=== PATIENT | female | born 1975 | race American Indian/Alaskan Native ===

== ENCOUNTER 2018-05-14 14:53 | Emergency (ER) | payer BC ==
--- NOTE | 2018-05-14 15:07 | Emergency Department Report ---
Chief Complaint: Chest Pain Stated Complaint: CHEST/LT ARM PAIN Time Seen by Provider: 05/14/18 15:09 - HPI History of Present Illness: RECENT GASTRITIS DX CO CHEST PAIN- HEAVY ANXIOUS CP WITH LA ALL OF THE SUDDEN DENIES SOB DENIES NAUSEA VAPES ETOH OCC DRUGS NONE PMH GASTRITIS DIVERTICULITIS OBESE PSH CSEC TUBAL LMP 04/07 PCP SABI MOTTA RX NONE MOM HTN DAD HTN MSE COMPLETED MSE screening note: Focused history and physical exam performed. Due to findings the following was ordered: ED Disposition for MSE Condition: Stable
--- NOTE | 2018-05-14 15:15 | Emergency Department Report ---
ED Chest Pain HPI - General Chief Complaint: Chest Pain Stated Complaint: CHEST/LT ARM PAIN Time Seen by Provider: 05/14/18 15:09 Source: patient, RN notes reviewed Mode of arrival: Ambulatory Limitations: No Limitations - History of Present Illness Initial Comments: This is a 42-year-old female who is not known to this provider previously. Her primary care provider is at [facility]. She reports a past medical history of gastritis and obesity. The patient presents to the emergency room with complaint of nontraumatic anterior chest pain, bilateral chest pain, posterior neck, trapezius pain, and left arm pain. The pain started at 1:00 PM. The pain is constant. The pain in the chest is reproducible, increases with palpation, decreases with rest, and it does not radiate to the back, arms or neck. The patient reports no DVT or pulmonary embolus risk factors. She reports feeling short of breath when her symptoms started, but she also reports feeling anxious, and this has since resolved. She is not short of breath currently. No recent aspirin use, or cocaine use. No oral contraceptive use. No family history of DVT, pulmonary embolus, coronary artery disease. MD Complaint: chest pain -: Gradual, hour(s) Onset: during exertion Pain Location: substernal, left chest, right chest Pain Radiation: none Severity: moderate Severity scale (0 -10): 7 Quality: aching Consistency: constant Improves With: rest Worsens With: palpation re: dyspnea (now resolved) Treatments Prior to Arrival: CPR - Related Data On Oral Contraceptives: No Previous Rx's Medication Instructions Recorded Last Taken Type Acetaminophen [Tylenol Arthritis] 650 mg PO Q6HR PRN #30 tablet.er 05/14/18 Unknown Rx Famotidine [Pepcid] 20 mg PO BID #30 tablet 05/14/18 Unknown Rx Allergies Allergy/AdvReac Type Severity Reaction Status Date / Time No Known Allergies Allergy Unverified 05/14/18 14:56 Heart Score - HEART Score History: Slightly suspicious EKG: Non-specific Age: < 45 Risk factors: 1-2 risk factors Troponin: < normal limit HEART Score: 2 - Critical Actions Critical Actions: 0-3 pts:0.9-1.7%risk of adverse cardiac event.Candidate for discharge ED Review of Systems ROS: Stated complaint: CHEST/LT ARM PAIN Other details as noted in HPI Constitutional: denies: fever Eyes: denies: vision change ENT: denies: epistaxis Respiratory: denies: cough Cardiovascular: chest pain Gastrointestinal: denies: abdominal pain, nausea, vomiting, hematemesis, melena, hematochezia Genitourinary: denies: dysuria Musculoskeletal: other Skin: denies: lesions Neurological: denies: weakness Psychiatric: anxiety ED Past Medical Hx - Past Medical History Previous Medical History?: Yes Additional medical history: Gastritis - Surgical History Past Surgical History?: No - Social History Smoking Status: Current Every Day Smoker Substance Use Type: None - Medications Home Medications: Home Medications Medication Instructions Recorded Confirmed Last Taken Type Acetaminophen [Tylenol Arthritis] 650 mg PO Q6HR PRN #30 tablet.er 05/14/18 Unknown Rx Famotidine [Pepcid] 20 mg PO BID #30 tablet 05/14/18 Unknown Rx ED Physical Exam - General Limitations: No Limitations General appearance: alert, in no apparent distress, obese - Head Head exam: Present: atraumatic, normocephalic - Eye Eye exam: Present: normal appearance, EOMI. Absent: nystagmus - ENT ENT exam: Present: normal exam, normal orophraynx, mucous membranes moist, normal external ear exam - Neck Neck exam: Present: normal inspection, full ROM. Absent: tenderness, meningismus - Respiratory Respiratory exam: Present: normal lung sounds bilaterally, chest wall tenderness, other (there is no breast tenderness. Chaperoned by nurse Ahmet Bo.). Absent: respiratory distress, wheezes, rales, rhonchi, stridor, accessory muscle use, decreased breath sounds, prolonged expiratory - Cardiovascular Cardiovascular Exam: Present: regular rate, normal rhythm. Absent: systolic murmur, diastolic murmur, rubs, gallop - GI/Abdominal GI/Abdominal exam: Present: soft. Absent: distended, tenderness, guarding, rebound, rigid, pulsatile mass - Extremities Exam Extremities exam: Present: normal inspection, full ROM, normal capillary refill, other (2+ pulses noted in the bilateral upper, lower extremities. Compartments soft. No long bony tenderness. The pelvis is stable.). Absent: pedal edema, joint swelling, calf tenderness - Back Exam Back exam: Present: normal inspection, full ROM. Absent: tenderness, CVA tenderness (R), paraspinal tenderness, vertebral tenderness - Neurological Exam Neurological exam: Present: alert, oriented X3, CN II-XII intact, normal gait, other (Extraocular movements intact. Tongue midline. No facial droop. Facial sensation intact to light touch in the V1, V2, V3 distribution bilaterally. 5 and 5 strength in 4 extremities.. Sensation is intact to light touch in 4 extremities.). Absent: motor sensory deficit - Psychiatric Psychiatric exam: Present: normal affect, normal mood - Skin Skin exam: Present: warm, dry, intact, normal color. Absent: rash ED Course Vital Signs 05/14/18 05/14/18 05/14/18 15:06 15:37 15:45 Temperature 99.5 F Pulse Rate 98 H 80 Respiratory 20 13 13 Rate Blood Pressure 157/80 130/67 O2 Sat by Pulse 98 Oximetry 05/14/18 05/14/18 05/14/18 16:01 16:15 16:30 Temperature Pulse Rate 78 74 76 Respiratory 13 19 14 Rate Blood Pressure 129/73 129/73 135/78 O2 Sat by Pulse Oximetry 05/14/18 05/14/18 05/14/18 16:53 17:00 17:15 Temperature Pulse Rate 82 81 87 Respiratory 18 18 15 Rate Blood Pressure 135/78 146/79 146/79 O2 Sat by Pulse Oximetry 05/14/18 05/14/18 05/14/18 17:47 17:55 18:01 Temperature Pulse Rate 92 H 68 Respiratory 20 13 Rate Blood Pressure 146/79 135/78 O2 Sat by Pulse 98 Oximetry 05/14/18 05/14/18 05/14/18 18:15 18:31 18:34 Temperature Pulse Rate 77 80 Respiratory 14 20 Rate Blood Pressure 146/79 146/79 O2 Sat by Pulse 98 Oximetry - Reevaluation(s) Reevaluation #1: 05/14/18 16:09 Differential diagnosis, including not limited to: GERD, gastritis, hiatal hernia, acute coronary syndrome, pneumonia, anxiety, pulmonary embolus Assessment and plan: 42-year-old female with reproducible chest wall pain, low risk by MAHSA score, low risk by heart score, low risk by well's criteria, no pulmonary embolus or DVT risk factors. Patient at low risk for major adverse c ardiac event. Given her obesity and tachycardia, we will send a d-dimer to risk stratify for pulmonary embolus. We will treat her chest wall pain with NSAIDs. Laboratory studies, chest x-ray pending at this time. Reevaluation #2: 05/14/18 18:10 Patient reassessed. Noted to be talking on a cellular phone multiple times. Patient with no acute distress. D-dimer negative. Troponin negative. X-ray of the chest negative. Repeat troponin is pending. Reevaluation #3: 05/14/18 18:53 The patient is reassessed multiple times and is in no acute distress. She is noted to be speaking on the cellular phone multiple times Objective testing appears to be unremarkable. Patient remains at low risk for major adverse cardiac event. She can follow up with outpatient primary care doctor for her nonspecifically elevated quantitative hCG, she was specifically informed about this, and she can follow up with an outpatient environmental management specialist for her chest discomfort. MAHSA score - Mahsa Score Age > 65: (0) No Aspirin use within the Past 7 Days: (0) No 3 or more CAD Risk Factors: (0) No 2 or more Angina events in past 24 hrs: (0) No Known CAD with more than 50% Stenosis: (0) No Elevated Cardiac Markers: (0) No ST Deviation Greater than 0.5mm: (0) No MAHSA Score: 0 ED Medical Decision Making - Lab Data Result diagrams: 05/14/18 15:28 05/14/18 15:28 Vital Signs 05/14/18 15:06 Temperature 99.5 F Pulse Rate 98 H Respiratory 20 Rate Blood Pressure 157/80 O2 Sat by Pulse 98 Oximetry - EKG Data -: EKG Interpreted by Me EKG shows normal: sinus rhythm Rate: tachycardia - EKG Data When compared to previous EKG there are: previous EKG unavailable 05/14/18 16:09 Sinus tachycardia, 102 bpm, normal axis, motion artifact, atrial enlargement, not consistent with ST elevation myocardial infarction. - Radiology Data Radiology results: pending, image reviewed interpreted by me: X-ray the chest is negative for acute disease. Critical care attestation.: If time is entered above; I have spent that time in minutes in the direct care of this critically ill patient, excluding procedure time. ED Disposition Clinical Impression: Chest wall pain, Elevated serum hCG Disposition: TO HOME OR SELFCARE Is pt being admited?: No Does the pt Need Aspirin: No Condition: Stable Instructions: Chest Pain (ED) Additional Instructions: Avoid consumption of Motrin, ibuprofen, Naprosyn, Aleve. Take the pain medication as needed/directed. Follow up with a environmental management specialist within the next 3- 5 days. Please note that laboratory studies demonstrated nonspecific minor elevation in blood test. Please follow up with a primary care doctor or [facility] physician within the next week to have this rechecked. Return to the emergency room right away with new pain, worsening pain, migration of pain, projectile vomiting, change in mental status, confusion, new, worsening or different symptoms. Prescriptions: Acetaminophen [Tylenol Arthritis] 650 mg PO Q6HR PRN #30 tablet.er PRN Reason: Pain Famotidine [Pepcid] 20 mg PO BID #30 tablet Referrals: SABI LEE MD [Primary Care Provider] - 3-5 Days [facility] [Provider Group] - 3-5 Days [facility] [Provider Group] - 3-5 Days
[2018-05-14] MEDS ORDERED: PEPCID IV ONE (15:25)
[2018-05-14] MEDS ORDERED: NACL 0.9% 1000 ML 1,000 ML IV ONE (15:25)
[2018-05-14] MEDS ORDERED: CARAFATE PO ONE (15:25)
[2018-05-14] MEDS ORDERED: TORADOL IV ONE (15:25)
[2018-05-14 16:26] LABS: Eosinophils % (Auto) 1.2 % (0.0-4.3); Hematocrit 36.8 % (30.3-42.9); Hemoglobin 12.8 gm/dl (10.1-14.3); Lymphocytes % (Auto) 20.9 % (13.4-35.0); Mean Corpuscular HGB Conc 35 % (30-34); Mean Corpuscular Volume 90 fl (79-97); Platelet Count 370 K/mm3 (140-440); Red Blood Count 4.07 M/mm3 (3.65-5.03); Red Cell Distribution Width 12.5 % (13.2-15.2)
[2018-05-14 16:27] LABS: Basophils % (Auto) 0.4 % (0.0-1.8); Eosinophils # (Auto) 0.1 K/mm3 (0.0-0.4); Lymphocytes # (Auto) 2.2 K/mm3 (1.2-5.4); Monocytes # (Auto) 1.2 K/mm3 (0.0-0.8)
[2018-05-14 16:29] LABS: INR 0.94 (0.87-1.13)
[2018-05-14 16:30] LABS: Partial Thromboplastin Time 33.8 Sec. (24.2-36.6)
[2018-05-14 16:41] LABS: Alanine Aminotransferase 25 units/L (7-56); Albumin 4.2 g/dL (3.9-5); BUN/Creatinine Ratio 11; Blood Urea Nitrogen 8 mg/dL (7-17); Hemolysis Index 9
[2018-05-14 17:43] VITALS: BP 146/79
--- NOTE | 2018-05-14 18:19 | XRay Report ---
FINAL REPORT EXAM: XR CHEST ROUTINE 2V HISTORY: CHEST PAIN TECHNIQUE: Two view chest PA and lateral PRIORS: None. FINDINGS: Cardiac and mediastinal contours are unremarkable. No focal pulmonary infiltrate is identified. No pleural fluid collection seen. Pulmonary vasculature is unremarkable. IMPRESSION: Negative two-view chest
== END 2018-05-14 19:07 | disposition home or self-care (01) ==
LOC: ED 14:53
DX: R07.2 Precordial pain (principal); K29.70 Gastritis, unspecified, without bleeding; F41.9 Anxiety disorder, unspecified; E66.9 Obesity, unspecified; Z68.36 Body mass index [BMI] 36.0-36.9, adult; F17.200 Nicotine dependence, unspecified, uncomplicated
CPT/HCPCS: 36415; 71046; 80053; 83690; 84484; 84702; 85025; 85379; 85610; 85730; 93005; 93010; 96361; 96374; 96375; 99284; J1885; J7030